=== PATIENT | female | born 2000 | race Caucasian/White ===

== ENCOUNTER 2019-05-31 07:58 | Day surgery (SDC) | payer OTHER ==
[~2019-05-31] VITALS: Ht 157.5 cm; Wt 62.6 kg
[2019-05-31] MEDS ORDERED: PROPOFOL 200 MG/20 ML VIAL IV ONE (09:42)
[2019-05-31] MEDS ORDERED: KETOROLAC 30 MG/ML VIAL ONE (09:42)
[2019-05-31] MEDS ORDERED: ONDANSETRON 4 MG/2 ML VIAL ONE (09:42)
[2019-05-31] MEDS ORDERED: DEXAMETHASONE 4 MG/ML VIAL ONE (09:42)
[2019-05-31] MEDS ORDERED: DESFLURANE 240 ML BTL INH ONE (09:42)
[2019-05-31] MEDS ORDERED: fentaNYL 0.05 MG/ML VIAL ONE (09:57)
[2019-05-31] MEDS ORDERED: BUPIVACAINE-MPF/EPI 0.25% 30 ML VIAL INJ ONE (10:01)
[2019-05-31] MEDS ORDERED: LIDOCAINE 1% 500 MG/50 ML VIAL ONE (10:02)
== END 2019-05-31 12:25 | disposition home or self-care (01) ==
LOC: MDS 07:58 → MMU 08:00 → MDS 12:25
PROVIDERS: ATTEND Surgery
DX: D23.62 Other benign neoplasm of skin of left upper limb, including shoulder (principal); L72.3 Sebaceous cyst; R22.32 Localized swelling, mass and lump, left upper limb
CPT/HCPCS: 11404; 71045; 88305; 88313; 88342; J0690; J1100; J1885; J2001; J2405; J2704; J3010; J3490; J7060; J7120